=== PATIENT | male | born 1965 | race Caucasian/White ===

== ENCOUNTER 2017-02-07 09:03 | Emergency (ER) | payer OTHER ==
[~2017-02-07] VITALS: Ht 172.7 cm; Wt 87.1 kg
[2017-02-07 09:07] VITALS: BP 147/78
--- NOTE | 2017-02-07 09:14 | NUR ---
Patient ambulated to bed 5. RN evaluating patient at bedside.
--- NOTE | 2017-02-07 09:15 | NUR ---
51/M BIB SELF WITH C/O 7/10 "SHARP" NON RADIATING RT FOOT/ANKLE PAIN x 3 MONTHS. PT STATES HE HURT HIS FOOT PLAYING ON THE [place] IN NOVEM[place]; PT STATES PAIN IS INTERMITTENT AND IS ABLE TO BEAR WEIGHT ON FOOT; MILD SWELLING NOTED TO R ANKLE; CMS AND SKIN INTACT TO BLE; SKIN IS PINK/WARM/DRY; AAOX4 WITH EVEN AND STEADY GAIT; RR ARE EVEN AND UNLABORED;VSS; PATIENT POSITIONED FOR COMFORT; HOB ELEVATED; BED DOWN. ER MD MADE AWARE OF PT STATUS. ALL NEEDS MET AT THIS TIME; WILL CONTINUE TO MONITOR
--- NOTE | 2017-02-07 09:29 | NUR ---
eeg tech at bedside.
[2017-02-07 10:34] VITALS: BP 129/86
== END 2017-02-07 10:34 | disposition home or self-care (01) ==
LOC: MED 09:03
DX: S93.401A Sprain of unspecified ligament of right ankle, initial encounter (principal); F31.9 Bipolar disorder, unspecified; F17.200 Nicotine dependence, unspecified, uncomplicated; Y93.39 Activity, other involving climbing, rappelling and jumping off; Y93.89 Activity, other specified; Y92.89 Other specified places as the place of occurrence of the external cause; Y99.8 Other external cause status
CPT/HCPCS: 73610; 73630; 99284

== ENCOUNTER 2017-05-01 06:50 | Inpatient (IN) | payer OTHER ==
[~2017-05-01] VITALS: Ht 172.7 cm; Wt 90.7 kg
[2017-05-01 07:15] VITALS: BP 145/70
--- NOTE | 2017-05-01 07:22 | NUR ---
51M BIB SELF C/O COUGH AND CONGESTION X 6 DAYS. HX: PT DENIES RX: PT DENIES; DENIES N/V/D; SKIN IS PINK/WARM/DRY; AAOX4 WITH EVEN AND STEADY GAIT; LUNGS CLEAR BL; HR EVEN AND REGULAR; PT DENIES ANY FEVER, CP, SOB, OR COUGH AT THIS TIME; PATIENT STATES PAIN OF 7 /10 AT THIS TIME; VSS; PATIENT POSITIONED FOR COMFORT; HOB ELEVATED; BEDRAILS UP X2; BED DOWN. ER MD MADE AWARE OF PT STATUS.
[2017-05-01] MEDS ORDERED: NACL 0.9% 1,000 ML IV ONE (07:35)
[2017-05-01] MEDS ORDERED: ALBUTEROL SULFATE/IPRATROPIU 3 ML SOL IH ONE ×2 (07:35→09:00)
[2017-05-01] MEDS ORDERED: methylPREDNISolone SS 125 MG/2 ML VIAL IVP ONE (09:00)
[2017-05-01] MEDS ORDERED: MAG SULF 2000 MG/WATER PREMIX 50 ML IV ONE (09:00)
[2017-05-01 10:12] LABS: BASOPHILS # (AUTO) 0.1 K/uL (0.00-0.22); BASOPHILS % (AUTO) 2.2 % (0.0-2.0); EOSINOPHILS % (AUTO) 0.2 % (0.0-4.0); HEMATOCRIT 42.2 % (36-52); HEMOGLOBIN 14.3 g/dL (12.0-18.0); LYMPHOCYTES % (AUTO) 16.9 % (20.5-51.1); MEAN CORPUSCULAR HEMOGLOBIN 30 pg (27-31); MEAN CORPUSCULAR HGB CONC 34 g/dL (33-37); MEAN CORPUSCULAR VOLUME 87 fL (80-94); MONOCYTES # (AUTO) 0.4 K/uL (0.8-1.0); MONOCYTES % (AUTO) 6.2 % (1.7-9.3); NEUTROPHILS # (AUTO) 4.3 K/uL (1.8-7.7); NEUTROPHILS % (AUTO) 74.5 % (42.2-75.2); PLATELET COUNT (AUTO) 130 K/uL (140-450); RED BLOOD CELL COUNT(AUTO) 4.86 MIL/uL (4.20-6.10); RED CELL DISTRIBUTION WIDTH 13.2 % (11.6-13.7); WHITE BLOOD COUNT (AUTO) 5.8 K/uL (4.8-10.8)
[2017-05-01 10:21] LABS: ANION GAP 11.3 (8-16); CARBON DIOXIDE 26.2 mmol/L (21-32); CREATININE 1.2 mg/dL (0.7-1.3); POTASSIUM 3.5 mmol/L (3.5-5.1)
[2017-05-01 10:29] LABS: ALBUMIN 3.7 g/dL (3.4-5.0); TOTAL BILIRUBIN 0.4 mg/dL (0.0-1.0)
[2017-05-01] MEDS ORDERED: ALBUTEROL SULFATE/IPRATROPIU 3 ML SOL INH PRN (12:15)
[2017-05-01] MEDS ORDERED: HYDROcodone/APAP 5/325 MG 1 TAB TAB PO PRN ×4 (12:15→13:00)
[2017-05-01] MEDS ORDERED: ALBUTEROL 0.083% 2.5 MG/3 ML NEBU INH PRN ×2 (12:15→13:00)
[2017-05-01] MEDS ORDERED: IPRATROPIUM 0.02% 0.5 MG/2.5 ML NEBU INH PRN ×2 (12:15→13:00)
[2017-05-01] MEDS ORDERED: ONDANSETRON 4 MG/2 ML VIAL IVP PRN (12:15)
[2017-05-01] MEDS ORDERED: ACETAMINOPHEN 325 MG TAB PO PRN ×2 (12:15→13:00)
[2017-05-01] MEDS ORDERED: LORazepam 2 MG/ML VIAL IVP PRN ×2 (12:15→13:00)
--- NOTE | 2017-05-01 12:56 | NUR ---
PT TRANSFERRED TO [facility] 112[facility]. BEDSIDE REPORT GIVEN TO HIMANSHU MOLINA. BP 119/60. O2 SAT 95%. NO FEVER.PT AWAKE, ALERT, AND ORIENTED. NO S/S OF RESPIRATORY DISTRESS NOTED.
[2017-05-01 13:30] VITALS: BP 132/80
--- NOTE | 2017-05-01 13:30 | NUR ---
RECEIVED PT REPORT FROM ER NURSE. PT IS AWAKE, ALERT AND ORIENTEDX4. ON MED SURG. NO ACUTE DISTRESS NOTED. DENIES N/V AND PAIN AT THIS TIME. IV NOTED ON THE LEFT AC G#20. LUNG SOUND CLEAR TO AUSCULTATION. PLAN OF CARE DISCUSSED AND VERBALIZED UNDERSTANDING. BED ON LOW POSITION. CALL LIGHT PLACED WITHIN EASY REACH. WILL CONTINUE TO MONITOR.
--- NOTE | 2017-05-01 14:00 | NUR ---
PT REPORTED BIPOLAR AND TAKING MEDICATION FOR BIPOLAR AT HOME. PT DENIES ANY OTHER MEDICAL HISTORY.
--- NOTE | 2017-05-01 16:50 | NUR ---
CHECKED IN ON PT. PT STATES BREATHING IS BETTER AT THIS TIME AND IS NOT SOB. PT IS SITTING UP IN BED WATCHING TV. PT REMAINS ON ROOM AIR.
--- NOTE | 2017-05-01 19:35 | NUR ---
PATIENT REPORT GIVEN TO FARM REPORTER NURSE AT BEDSIDE. PATIENT IS IN STABLE CONDITION.
--- NOTE | 2017-05-01 19:36 | NUR ---
RECEIVED REPORT FROM DAY SHIFT NURSE HIMANSHU RN, DR. VICTORIA ALSO IN ROOM TO DISCUSS MEDICATIONS AND PLAN OF CARE WITH PT. PT IS AAOX4 ON ROOM AIR. NO S/S OF DISTRESS. PT SKIN IS INTACT. RESPIRATIONS ARE EVEN AND UNLABORED. IV TO R AC 20G PATENT AND INTACT, SALINE LOCK. PT ASKED DR. VICTORIA, "I TAKE BENADRYL AT HOME FOR SLEEPING, CAN I TAKE THAT HERE?" DR. VICTORIA SAID HE WILL CONTINUE HOME MEDICATIONS. SKIN IS WARM AND DRY TO TOUCH. INITIAL ASSESSMENT COMPLETED. PLAN OF CARE DISCUSSED WITH PT AT THE BEDSIDE. ALL SAFETY PRECAUTIONS MET, CALL LIGHT WITHIN REACH
[2017-05-01] MEDS ORDERED: predniSONE 20 MG TAB PO SCH (19:45)
[2017-05-01] MEDS: ALBUTEROL SULFATE/IPRATROPIU 3 ML SOL INH PRN (20:30)
[2017-05-01] MEDS: DOXYCYCLINE 100 MG CAP PO SCH (22:19)
[2017-05-02] VITALS: BP 141/83
--- NOTE | 2017-05-02 06:49 | NUR ---
PATIENT HAS BEEN SCREENED AND CATEGORIZED LOW NUTRITION RISK. PATIENT WILL BE SEEN WITHIN 7 DAYS OF ADMISSION. 05/08/17 LIUDMILA HOFFMANN MS, RDN
--- NOTE | 2017-05-02 07:20 | NUR ---
GAVE REPORT TO DAY NURSE FOR CONTINUITY OF CARE, PT IN STABLE CONDITION
--- NOTE | 2017-05-02 07:21 | NUR ---
RECEIVED REPORT FROM GI TECHNICIAN NURSE MARILEE AT BEDSIDE FOR CONTINUITY OF CARE. PT IS AWAKE AND ORIENTED. INTRODUCED SELF AND UPDATED BOARD. PT IS SITTING UP IN BED. NO SIGNS OF DISTRESS. WILL CONTINUE TO MONITOR.
[2017-05-02] MEDS: ALBUTEROL SULFATE/IPRATROPIU 3 ML SOL INH PRN (07:34)
[2017-05-02 08:00] VITALS: BP 139/78
[2017-05-02] MEDS ORDERED: ENOXAPARIN 40 MG/0.4 ML SYR SUBQ SCH ×2 (09:00)
[2017-05-02] MEDS ORDERED: predniSONE 20 MG TAB PO ONE (09:00)
[2017-05-02] MEDS ORDERED: predniSONE 20 MG TAB PO SCH (09:00)
[2017-05-02] MEDS ORDERED: ALBU0.0912 INH (09:03)
[2017-05-02] MEDS ORDERED: PRED20TA5 PO (09:03)
[2017-05-02] MEDS ORDERED: DOXY100C12 PO (09:03)
[2017-05-02] MEDS: DOXYCYCLINE 100 MG CAP PO SCH (10:21)
--- NOTE | 2017-05-02 10:50 | NUR ---
PT D/C TO GO HOME. GAVE D/C FORMS, INSTRUCTIONS, RX AND FOLLOW UP APPOINTMENT. PT VERBALIZED UNDERSTANDING AND SIGNED FORMS. D/C IV FROM R AC 20G. IV CATHETER TIP INTACT. APPLIED DRESSING AND PRESSURE TO SITE. NO BLEEDING NOTED. REMOVED ID BAND. PT CHANGED IN OWN CLOTHES AND LEFT WITH ALL PERSONAL BELONGINGS. LEFT UNIT VIA AMBULATION WITH STEADY GAIT ACCOMPANIED BY DAUGHTER. PT LEFT IN STABLE CONDITION.
[2017-05-02] MEDS ORDERED: chlorproMAZINE 25 MG TAB PO SCH (17:00)
[2017-05-02] MEDS ORDERED: diphenhydrAMINE 12.5 MG/5 ML UDC PO SCH (21:00)
--- NOTE | 2017-05-06 08:53 | NUR ---
RETRO REVIEW ER REPORT AND DISCHARGE INSTRUCTIOS,JOAQUIN COPD, FAXED TO [facility] [phone] PHONE VAMSHI [phone]
== END 2017-05-02 10:50 | disposition home or self-care (01) | DRG 140 ==
LOC: MED 06:50 → MTU 12:13 → MED 12:58
PROVIDERS: ADMIT Hospitalist; ATTEND Hospitalist
DX: J44.1 Chronic obstructive pulmonary disease with (acute) exacerbation (principal); F31.9 Bipolar disorder, unspecified
CPT/HCPCS: 36415; 71010; 80053; 84484; 85025; 85610; 85730; 87081; 87804; 93005; 94640; 96361; 96365; 96366; 96375; 99285; J2930; J3475; J7030; J7512; J7620; Q0163